=== PATIENT | female | born 1975 ===

== ENCOUNTER 2022-06-03 13:13 | Emergency (ER) | payer OTHER ==
[~2022-06-03] VITALS: Ht 172.7 cm; Wt 63.5 kg
[~2022-06-03 13:13] MED LIST: AZIT250 PO; CIPR500 PO; HYDACE5 PO; LAMO100; LEVFLO250 PO; PENVK500 PO; PHENA200 PO; VARE1 PO
[2022-06-03 14:25] LABS: BASOPHILS ABSOLUTE AUTO 0.04 K/mm3 (0.00-0.23); BASOPHILS PERCENT AUTO 1 % (0-2); EOSINOPHILS ABSOLUTE AUTO 0.11 K/mm3 (0.00-0.68); EOSINOPHILS PERCENT AUTO 2 % (0-6); Hematocrit 43.8 % (33.0-51.0); Hemoglobin 15.5 g/dL (11.5-16.0); IMMATURE GRAN ABSOLUTE AUTO 0.01 K/mm3 (0.00-0.10); IMMATURE GRAN PERCENT AUTO 0 % (0-1); LYMPHOCYTES ABSOLUTE AUTO 1.92 K/mm3 (0.84-5.20); LYMPHOCYTES PERCENT AUTO 37 % (21-46); MONOCYTES ABSOLUTE AUTO 0.29 K/mm3 (0.16-1.47); MONOCYTES PERCENT AUTO 6 % (4-13); Mean Corpuscular HGB 32.3 pg (26.0-34.0); Mean Corpuscular HGB Conc 35.4 g/dL (31.5-36.5); Mean Corpuscular Volume 91 fL (80-100); NEUTROPHILS ABSOLUTE AUTO 2.89 K/mm3 (1.96-9.15); NEUTROPHILS PERCENT AUTO 55 % (41-73); Platelet Count 210 K/mm3 (150-400); RDW Standard Deviation 43.6 fL (35.1-46.3); White Blood Cell Count 5.26 K/mm3 (4.00-11.30)
[2022-06-03 14:43] LABS: Albumin, Blood 4.1 g/dL (3.4-5.0); Bilirubin, Total 0.7 mg/dL (0.1-1.0); Bun/Creatinine Ratio 13.2 (12.0-20.0); Calcium, Blood 9.8 mg/dL (8.5-10.1); Creatinine, Blood 0.61 mg/dL (0.40-1.00); Potassium, Blood 3.1 mmol/L (3.5-5.5); Total Protein, Blood 8.1 g/dL (6.4-8.2)
[2022-06-03 16:58] LABS: Magnesium, Blood 1.9 mg/dL (1.6-2.4)
[2022-06-03 17:00] LABS: Thyroid Stimulating Hormone 1.68 uIU/mL (0.360-4.800)
== END 2022-06-03 20:10 | disposition home or self-care (01) ==
LOC: ER 13:13
PROVIDERS: Physician Assistant; Student in an Organized Health Care Education/Training Program
DX: R55 Syncope and collapse (principal); E87.6 Hypokalemia; I45.10 Unspecified right bundle-branch block; I49.3 Ventricular premature depolarization; R42 Dizziness and giddiness; I10 Essential (primary) hypertension; Z88.0 Allergy status to penicillin; Z79.899 Other long term (current) drug therapy
CPT/HCPCS: 36415; 70450; 71045; 80053; 83735; 84443; 84484; 85025; 93005; 93010; A9270; J3475; J3480; J7030

== ENCOUNTER 2023-04-20 06:10 | Emergency (ER) | payer OTHER ==
[~2023-04-20] VITALS: Ht 172.7 cm; Wt 68.0 kg
[2023-04-20] MEDS ORDERED: BUSPIRONE HCL10 M6 PO (06:44)
[2023-04-20] MEDS ORDERED: ESCI10 PO (06:45)
[2023-04-20] MEDS ORDERED: LISI20 PO (06:45)
[2023-04-20 07:20] LABS: BASOPHILS ABSOLUTE AUTO 0.07 K/mm3 (0.00-0.23); BASOPHILS PERCENT AUTO 1 % (0-2); EOSINOPHILS ABSOLUTE AUTO 0.14 K/mm3 (0.00-0.68); EOSINOPHILS PERCENT AUTO 3 % (0-6); Hematocrit 41.9 % (33.0-51.0); Hemoglobin 14.4 g/dL (11.5-16.0); IMMATURE GRAN ABSOLUTE AUTO 0.01 K/mm3 (0.00-0.10); IMMATURE GRAN PERCENT AUTO 0 % (0-1); LYMPHOCYTES ABSOLUTE AUTO 1.13 K/mm3 (0.84-5.20); LYMPHOCYTES PERCENT AUTO 21 % (21-46); MONOCYTES PERCENT AUTO 7 % (4-13); Mean Corpuscular HGB 33.6 pg (26.0-34.0); Mean Corpuscular HGB Conc 34.4 g/dL (31.5-36.5); Mean Corpuscular Volume 98 fL (80-100); Mean Platelet Volume 10.6 fL (9.1-12.4); NEUTROPHILS ABSOLUTE AUTO 3.62 K/mm3 (1.96-9.15); NEUTROPHILS PERCENT AUTO 68 % (41-73); Platelet Count 140 K/mm3 (150-400); RDW Coefficient Variation 13.8 % (11.7-14.2); RDW Standard Deviation 49.7 fL (35.1-46.3); Red Blood Cell Count 4.28 M/mm3 (3.80-5.20); White Blood Cell Count 5.37 K/mm3 (4.00-11.30)
[2023-04-20 07:38] LABS: Albumin, Blood 3.3 g/dL (3.4-5.0); Albumin/Globulin Ratio 0.9 (0.8-1.8); Bilirubin, Direct 0.1 mg/dL (0.0-0.3); Bilirubin, Indirect 0.2 mg/dL (0.1-0.7); Bilirubin, Total 0.3 mg/dL (0.1-1.0); Bun/Creatinine Ratio 9.3 (12.0-20.0); Calcium, Blood 8.7 mg/dL (8.5-10.1); Creatinine, Blood 0.54 mg/dL (0.40-1.00); Globulin, Blood 3.8 g/dL (2.2-4.0); Magnesium, Blood 1.7 mg/dL (1.6-2.4); Potassium, Blood 3.7 mmol/L (3.5-5.5); Total Protein, Blood 7.1 g/dL (6.4-8.2)
[2023-04-20 09:26] VITALS: BP 114/89
== END 2023-04-20 10:11 | disposition home or self-care (01) ==
LOC: ER 06:10
PROVIDERS: Student in an Organized Health Care Education/Training Program
DX: R11.2 Nausea with vomiting, unspecified (principal); R13.10 Dysphagia, unspecified; F41.9 Anxiety disorder, unspecified; I10 Essential (primary) hypertension; G40.909 Epilepsy, unspecified, not intractable, without status epilepticus; Z88.0 Allergy status to penicillin; Z79.899 Other long term (current) drug therapy
CPT/HCPCS: 71046; 74220; 80053; 82248; 83690; 83735; 85025; J7030

== ENCOUNTER 2025-01-19 06:26 | Day surgery (SDC) | payer OTHER ==
[~2025-01-19] VITALS: Ht 170.2 cm; Wt 69.6 kg
[2025-01-19] VITALS (20 sets, daily range): BP systolic 94–119; BP diastolic 64–85
[~2025-01-19 06:26] MED LIST changes: +Amlodipine Besyl5 MG PO; +BUSPIRONE HCL10 M6 PO; +CeFAZolin Sodium 2,000 MG in NS 100 ML IV SCH; +ESCI10 PO; +LISI20 PO; +Lactated Ringer's 1,000 ML IV SCH; +MULVITA PO; +OLME20 PO; +OMEPRAZOLE20 M1 PO
--- NOTE | 2025-01-19 06:53 | NUR ---
PATIENT ARRIVED TO DAY SURGERY WITH "ROSY", WHO IS AT BEDSIDE.
[2025-01-19] MEDS ORDERED: CeFAZolin Sodium 2,000 MG VIAL ONE (06:57)
[2025-01-19] MEDS ORDERED: Bupivacaine 0.5% HCl 5 MG/ML 30MLVIAL ONE (07:03)
[2025-01-19] MEDS ORDERED: propofoL 20 ML IV ONE (07:07)
[2025-01-19] MEDS ORDERED: FentaNYL Citrate 50 MCG/ML 2 ML Injection ONE ×2 (07:08→08:14)
[2025-01-19] MEDS ORDERED: Lidocaine HCl 2% 20 ML MDV ONE (07:08)
[2025-01-19] MEDS ORDERED: Rocuronium Bromide 10 MG/ML 5ML Injection IV ONE ×2 (07:08→08:14)
[2025-01-19] MEDS ORDERED: Dexamethasone Sod Phos 10 MG/ML 1ML VIAL ONE (07:37)
[2025-01-19] MEDS ORDERED: Glycopyrrolate 0.2 MG/ML 5ML VIAL ONE (08:09)
[2025-01-19] MEDS ORDERED: Ondansetron HCl 2 MG / ML 2ML Vial IV PRN ×2 (08:30→09:30)
[2025-01-19] MEDS ORDERED: Dexmedetomidine HCL 200 MCG / 2 ML ONE (08:45)
[2025-01-19] MEDS ORDERED: Sugammadex Sodium 200 MG/2ML SDV (100 MG/ML) ONE (08:53)
[2025-01-19] MEDS ORDERED: Ondansetron HCl 2 MG / ML 2ML Vial ONE (09:06)
[2025-01-19] MEDS ORDERED: DiphenhydrAMINE HCL 25 MG Cap PO PRN (09:25)
[2025-01-19] MEDS ORDERED: FLU VACC TS2024-25(6MOS UP)/PF 45 MCG/0.5 ML SYRINGE IM SCH (09:25)
[2025-01-19] MEDS ORDERED: HYDROmorphone HCl/Pf 1MG SYR IV PRN (09:25)
[2025-01-19] MEDS ORDERED: Ibuprofen 400 MG Tab PO PRN (09:25)
[2025-01-19] MEDS ORDERED: Metoclopramide HCl 5MG / ML 2ML Vial IV PRN (09:30)
[2025-01-19] MEDS ORDERED: OxyCODONE HCL 5 MG TAB PO PRN (09:30)
[2025-01-19] MEDS ORDERED: Metoclopramide HCl 10 MG Tab PO PRN (09:30)
[2025-01-19] MEDS ORDERED: Ondansetron 4 MG TAB PO PRN (09:30)
[2025-01-19] MEDS ORDERED: Acetaminophen 325 MG TABLET PO PRN (09:30)
[2025-01-19] MEDS ORDERED: Simethicone 80 MG Chew PO PRN (09:30)
[2025-01-19] MEDS ORDERED: Lactated Ringer's 1,000 ML IV SCH (09:35)
[2025-01-19] MEDS ORDERED: Ketorolac Tromethamine 30mg Vial IV PRN (09:40)
[2025-01-19] MEDS ORDERED: HYDROmorphone HCl/Pf 1MG SYR ONE (09:53)
--- NOTE | 2025-01-19 11:32 | NUR ---
PT ARRIVED TO FLOOR POST ROBTIC ASSISTED HYSTERRECTOMY, NO LYNN IN PLACE, 3L NC, PT REPORTS HAVING PRESSURE/PAIN MEDICATED PER EMAR, NO N/V, TOLORATING PO FLIUDS AND CRACKERS, 4 SMALL INCSION WITH DERMABOND CLOSURE CLEAN AND DRY.
--- NOTE | 2025-01-19 15:24 | NUR ---
DC HOME PT CHOOSE TO AMBULATE OUT, HAD A STEADY GAIT, HAS MEDS AT HOME ALREADY AND AWARE WHEN TO TAKE THEM. ENCOURAGED PT TO CALL DR ESPINOZA IF HAS ANY QUESTIONS TO FOLLOW UP WITH DR ESPINOZA IN 2 WEEKS ALREADY HAS APPOINTMENT. PT HAS BEEN UP TO VOID 3 TIMES, AND CURRENTLY HAS NO N/V. HAS BEEN ABLE TO EAT CRACKERS WITH NO PROBLEMS, IS HERE TO GIVE HER A RIDE HOME
[2025-01-20] MEDS ORDERED: Omeprazole 20 MG CapCR PO SCH (06:00)
[2025-01-20] MEDS ORDERED: AmLODIPine Besylate 5 MG Tab PO SCH (09:00)
[2025-01-20] MEDS ORDERED: Losartan Potassium 50 MG Tab PO SCH (09:00)
== END 2025-01-19 15:20 | disposition home or self-care (01) ==
LOC: ORSCMMR 06:26 → ORD 07:30 → ORSCMMR 07:30 → BC 10:25 → ORSCMMR 15:20 → BC 15:20
DX: D27.0 Benign neoplasm of right ovary (principal); N80.03 Adenomyosis of the uterus; D25.9 Leiomyoma of uterus, unspecified; N83.8 Other noninflammatory disorders of ovary, fallopian tube and broad ligament; D27.1 Benign neoplasm of left ovary; I10 Essential (primary) hypertension; E78.5 Hyperlipidemia, unspecified; K21.9 Gastro-esophageal reflux disease without esophagitis; F41.8 Other specified anxiety disorders; F17.290 Nicotine dependence, other tobacco product, uncomplicated; Z79.899 Other long term (current) drug therapy
CPT/HCPCS: 86850; 86900; 86901; 88108; 88307; 90656; A9270; J0690; J1100; J1171; J1885; J2405; J2704; J3010; J7120